=== PATIENT | male | born 1975 | race Caucasian/White ===

== ENCOUNTER → 2020-11-09 | Outpatient (CLI) | payer OTHER, MEDICAID ==
[2020-11-09 13:44] LABS: HEMOGLOBIN 14.2 g/dl (13.5-17.5); MEAN CORPUSCULAR HEMOGLOBIN 31.8 pg (27.0-33.0); MEAN CORPUSCULAR VOLUME 96.2 fl (80.0-96.0); PLATELET COUNT, AUTOMATED 304 10^3/uL (150-450); RED BLOOD COUNT 4.47 10^6/uL (4.30-6.10); WHITE BLOOD COUNT 8.7 10^3/uL (4.0-10.0)
[2020-11-09 14:03] LABS: ALBUMIN 3.6 GM/DL (3.2-5.2); ALT/SGPT 26 U/L (12-78); BILIRUBIN,TOTAL 0.3 MG/DL (0.2-1.0); BLOOD UREA NITROGEN 19 MG/DL (7-18); CALCIUM LEVEL 8.9 MG/DL (8.5-10.1); CARBON DIOXIDE LEVEL 30 MEQ/L (21-32); CHLORIDE LEVEL 101 MEQ/L (98-107); CREATININE FOR GFR 0.97 MG/DL (0.70-1.30); GLOMERULAR FILTRATION RATE > 60.0 (>60); GLUCOSE, FASTING 94 MG/DL (70-100); SODIUM LEVEL 136 MEQ/L (136-145); TOTAL PROTEIN 7.4 GM/DL (6.4-8.2)
[2020-11-09 14:23] LABS: HEPATITIS B SURFACE ANTIGEN NEGATIVE (NEGATIVE)
[2020-11-09 14:51] LABS: HEPATITIS C VIRUS ABY INDEX < 0.0 INDEX (<0.8); HIV 1&2 SCREEN CENTAUR NEGATIVE (NEGATIVE)
--- NOTE | 2020-11-09 21:57 | ECGEPIP ---
[facility] Test Date: 2020-11-09 Pat Name: SCOTT ALVA Department: Room: - Gender: Male Grind Operator: ANABELA : 1975 Requested By: Joseph Giles Order Number: [id number] Reading MD: Soham Demarco Measurements Intervals [place] Rate: 78 P: 79 MA: 136 QRS: 82 QRSD: 78 T: 84 QT: 390 QTc: 444 Interpretive Statements Normal sinus rhythm Normal Electronically Signed on 11-09-2020 21:56:48 EDT by Soham Demarco
== END ==
LOC: M LAB 12:45
PROVIDERS: ATTEND Family Medicine
DX: F11.20 Opioid dependence, uncomplicated (principal)

== ENCOUNTER 2021-05-28 10:12 | Emergency (ER) | payer MEDICAID, OTHER ==
--- OUTSIDE RECORDS SUMMARY | 2021-05-28 10:16 | CCD ---
Author Author [facility] Organization [facility] Address Unknown Phone Unavailable Support Name Relationship Address Phone UN Next Of Kin Unknown Unavailable NONE, PT PER Next Of Kin - -, - - - UE Next Of Kin Unknown Unavailable REID ALVA Next Of Kin [address] [place], [place] [id number] Estevan ALVA Next Of Kin [address] [place] [address] [place] [id number] Re-disclosure Warning The records that you are about to access may contain information from federally-assisted alcohol or drug abuse programs. If such information is present, then the following federally mandated warning applies: This information has been disclosed to you from records protected by federal confidentiality rules (42 CFR part 2). The federal rules prohibit you from making any further disclosure of this information unless further disclosure is expressly permitted by the written consent of the person to whom it pertains or as otherwise permitted by 42 CFR part 2. A general authorization for the release of medical or other information is NOT sufficient for this purpose. The Federal rules restrict any use of the information to criminally investigate or prosecute any alcohol or drug abuse patient.The records that you are about to access may contain highly sensitive health information, the redisclosure of which is protected by Article 27-F of the [facility] Public Health law. If you continue you may have access to information: Regarding HIV / AIDS; Provided by facilities licensed or operated by the [facility] Office of Mental Health; or Provided by the [facility] Office for People With Developmental Disabilities. If such information is present, then the following [facility] mandated warning applies: This information has been disclosed to you from confidential records which are protected by state law. State law prohibits you from making any further disclosure of this information without the specific written consent of the person to whom it pertains, or as otherwise permitted by law. Any unauthorized further disclosure in violation of state law may result in a fine or snf sentence or both. A general authorization for the release of medical or other information is NOT sufficient authorization for further disc losure. Medications No Information Insurance Providers Payer name Policy type / Coverage type Policy ID Covered libertarian ID Covered libertarian's relationship to burton Policy Burton Plan Information [facility] MEDICAID [id number] SP [id number] G [facility] COMMUNITY PLAN [facility] [id number] SP [id number] [facility] [id number] SP [id number] [place] [id number] SP [id number] [facility] [id number] SP [id number] [facility] [id number] SP [id number] O UNAVAILABLE UNAVAILA BLE SELF PAY UNAVAILABLE SP UNAVAILA BLE Problems, Conditions, and Diagnoses No Information Surgeries/Procedures No Information Results No Information Social History No Information
[2021-05-28 10:52] LABS: BASO # 0.1 10^3/uL (0.0-0.2); BASO % 0.5 % (0.0-1.0); EOS # 0.1 10^3/uL (0.0-0.5); EOS % 0.9 % (0.0-3.0); HEMATOCRIT 37.1 % (42.0-52.0); HEMOGLOBIN 12.2 g/dl (13.5-17.5); LYMPH # 2.4 10^3/uL (1.5-5.0); LYMPH % 19.2 % (24.0-44.0); MEAN CORPUSCULAR HEMOGLOBIN 31.7 pg (27.0-33.0); MEAN CORPUSCULAR HGB CONC 32.9 g/dl (32.0-36.5); MEAN CORPUSCULAR VOLUME 96.4 fl (80.0-96.0); MONO # 0.6 10^3/uL (0.0-0.8); MONO % 4.6 % (2.0-8.0); NEUTROPHILS # 9.4 10^3/uL (1.5-8.5); NEUTROPHILS % 74.6 % (36.0-66.0); PLATELET COUNT, AUTOMATED 294 10^3/uL (150-450); RED BLOOD COUNT 3.85 10^6/uL (4.30-6.10); WHITE BLOOD COUNT 12.6 10^3/uL (4.0-10.0)
--- OUTSIDE RECORDS SUMMARY | 2021-05-28 11:19 | CCD ---
Author Author [facility] Organization [facility] Address Unknown Phone Unavailable Support Name Relationship Address Phone UN Next Of Kin Unknown Unavailable NONE, PT PER Next Of Kin - -, - - - UE Next Of Kin Unknown Unavailable REID ALVA Next Of Kin [address] [place], [place] [id number] Estevan ALVA Next Of Kin [address] [place] [address] [place] [address] Re-disclosure Warning The records that you are [...] is protected by Article 27-F of the [facility] Public Health law. If you continue you may have access to information: Regarding HIV / AIDS; Provided by facilities licensed or operated by the [facility] Office of Mental Health; or Provided by the [facility] Office for People With Developmental Disabilities. If such information is present, then the following [facility] mandated warning applies: This information has [...] law may result in a fine or mcc sentence or both. A general authorization for the release of medical or other information is NOT sufficient authorization for further disc losure. Medications No Information Insurance Providers Payer name Policy type / Coverage type Policy ID Covered green party ID Covered green party's relationship to burton Policy Burton Plan Information [facility] COMM[facility] [id number] SP [id number] [facility] MED[facility] [id number] SP [id number] G [facility] [id number] SP [id number] [facility] [id number] SP [id number] [facility] [id number] SP [id number] [facility] [id number] SP [id number] O UNAVAILABLE UNAVAILA BLE SELF PAY UNAVAILABLE SP UNAVAILA BLE Problems, Conditions, and Diagnoses No Information Surgeries/Procedures No Information Results No Information Social History No Information
[2021-05-28 11:26] LABS: ACETAMINOPHEN LEVEL < 2.0 UG/ML (10.0-30.0); ALBUMIN 3.3 GM/DL (3.2-5.2); ALT/SGPT 26 U/L (12-78); BILIRUBIN,DIRECT 0.1 MG/DL (0.0-0.2); BILIRUBIN,TOTAL 0.4 MG/DL (0.2-1.0); BLOOD UREA NITROGEN 17 MG/DL (7-18); CALCIUM LEVEL 8.7 MG/DL (8.5-10.1); CARBON DIOXIDE LEVEL 29 MEQ/L (21-32); CHLORIDE LEVEL 107 MEQ/L (98-107); CPK CREATINE PHOSPHOKINASE 203 U/L (39-308); CREATININE FOR GFR 0.97 MG/DL (0.70-1.30); ETHYL ALCOHOL (ETHANOL) < 0.003 % (0.000-0.010); GLOMERULAR FILTRATION RATE > 60.0 (>60); GLUCOSE, FASTING 98 MG/DL (70-100); POTASSIUM SERUM 4.4 MEQ/L (3.5-5.1); SALICYLATE LEVEL 3.8 MG/DL (5.0-30.0); SODIUM LEVEL 142 MEQ/L (136-145); TOTAL PROTEIN 7.2 GM/DL (6.4-8.2)
--- NOTE | 2021-05-28 11:42 | REP ---
INDICATION: Drug Overdose. COMPARISON: None. TECHNIQUE: 5 mm contiguous transaxial sections were obtained from the skull base to the cerebral convexities. FINDINGS: The ventricles and sulci are consistent with the patient's age. There are no extra-axial fluid collections. There is no mass effect. The deep cerebral white matter is consistent with the patient's age. The orbital and petrous structures, cerebellopontine angles, and posterior fossa are unremarkable. The sella turcica, cavernous, and paracavernous structures are essentially unremarkable. The visualized portions of the paranasal sinuses and mastoid air cells are clear. Images of the skull base show no gross abnormality. IMPRESSION: Essentially unremarkable CT examination of the brain. <Electronically signed by Antelmo Reyna > 05/28/21 1623
[2021-05-28 13:49] LABS: AMPHETAMINES LEVEL URINE POSITIVE (NEGATIVE); BARBITURATES URINE NEGATIVE (NEGATIVE); BENZODIAZEPINES URINE POSITIVE (NEGATIVE); CANNABINOIDS URINE NEGATIVE (NEGATIVE); COCAINE METABOLITE URINE NEGATIVE (NEGATIVE); METHADONE URINE POSITIVE (NEGATIVE); OPIATES URINE POSITIVE (NEGATIVE); PHENCYCLIDINE URINE NEGATIVE (NEGATIVE)
[2021-05-28 14:31] LABS: MB/CK RELATIVE INDEX 1.48 (< OR =4); TROPONIN I < 0.02 NG/ML (< 0.10)
[2021-05-28] MEDS ORDERED: diphenhydrAMINE 50MG/ML VIAL (J1200) IM ONE (16:15)
[2021-05-28] MEDS ORDERED: OLANZapine INTRAMUSCULAR 10MG VIAL IM ONE (16:15)
[2021-05-28 16:30] LABS: RSV AMPLIFICATION NEGATIVE (NEGATIVE)
[2021-05-28] MEDS ORDERED: METH10CO PO (17:29)
--- NOTE | 2021-05-28 18:21 | ECGEPIP ---
[facility] - ED Test Date: 2021-05-28 Pat Name: SCOTT ALVA Department: Room: - Gender: Male Group President: MYRON Winters : 1975 Requested By: Izabel Walker Order Number: [id number] Reading MD: Izabel Walker Measurements Intervals [place] Rate: 80 P: [place]: 64 QRS: 73 QRSD: 80 T: 86 QT: 408 QTc: 470 Interpretive Statements Sinus rhythm with short NC ST elevation, consider inferolateral injury or acute infarct, clinical correlation prolonged qtc Electronically Signed on 05-28-2021 18:21:16 EDT by Izabel Walker
[2021-05-28 22:46] VITALS: BP 106/91
== END 2021-05-28 22:49 | disposition home or self-care (01) ==
LOC: M ED 10:12
DX: F15.10 Other stimulant abuse, uncomplicated (principal); I10 Essential (primary) hypertension; J45.909 Unspecified asthma, uncomplicated; Z88.5 Allergy status to narcotic agent
CPT/HCPCS: 36415; 70450; 80048; 80076; 80143; 80307; 82077; 82550; 82553; 84443; 85025; 87631; 93005; 93041; 94760; 96372; 99285; J1200

== ENCOUNTER 2022-03-06 08:31 | Emergency (ER) | payer OTHER, SELFPAY ==
[~2022-03-06 08:31] MED LIST: METH10CO PO
== END 2022-03-06 09:16 | disposition home or self-care (01) ==
LOC: M ED 08:31
DX: Z04.89 Encounter for examination and observation for other specified reasons (principal); Z88.5 Allergy status to narcotic agent; Z79.891 Long term (current) use of opiate analgesic; F17.200 Nicotine dependence, unspecified, uncomplicated

== ENCOUNTER → 2022-09-12 | Outpatient (REF) | payer SELFPAY | LOC: M LAB REF 16:25 | PROVIDERS: ATTEND Surgery | DX: Z51.81 Encounter for therapeutic drug level monitoring (principal) ==

== ENCOUNTER 2024-06-26 21:23 | Emergency (ER) | payer MEDICARE, MEDICAID ==
[~2024-06-26] VITALS: Ht 188 cm; Wt 70.0 kg
[2024-06-26 21:30] VITALS: BP 132/86; TEMP 97.4; O2SAT 98
== END 2024-06-26 22:43 | disposition left against medical advice (07) ==
LOC: M ED 21:23
DX: Z53.21 Procedure and treatment not carried out due to patient leaving prior to being seen by health care provider (principal)

== ENCOUNTER 2025-06-07 16:48 | Emergency (ER) | payer MEDICAID, MEDICARE, SELFPAY ==
[~2025-06-07] VITALS: Ht 188 cm; Wt 77.3 kg
[2025-06-07 16:55] VITALS: TEMP 99.1
[2025-06-07] MEDS ORDERED: OLAN1TAB20 PO (17:17)
[2025-06-07 17:23] LABS: BASO # 0.1 10^3/uL (0.0-0.2); BASO % 0.6 % (0.0-1.0); EOS # 0.1 10^3/uL (0.0-0.5); EOS % 1.5 % (0.0-3.0); LYMPH # 2.7 10^3/uL (1.5-5.0); LYMPH % 33.6 % (24.0-44.0); MONO # 0.5 10^3/uL (0.0-0.8); MONO % 6.5 % (2.0-8.0); NEUTROPHILS # 4.7 10^3/uL (1.5-8.5); NEUTROPHILS % 57.6 % (36.0-66.0); PLATELET COUNT, AUTOMATED 185 10^3/uL (150-450)
[2025-06-07] MEDS: KETOROLAC 30 MG/ML 1 ML VIAL IV ONE ×2 (17:30→18:51)
[2025-06-07 17:48] LABS: D-DIMER QUANT < 0.27 ug/mL (<0.5); INR 1.16
[2025-06-07 17:50] LABS: ALT/SGPT 27 U/L (7.0-40); AST/SGOT 36 U/L (<34); CALCIUM LEVEL 6.0 MG/DL (8.5-10.1); CARBON DIOXIDE LEVEL 18 MMOL/L (20-31); CHLORIDE LEVEL 114 MMOL/L (98-107); CK-MB VALUE MASS < 1.0 NG/ML (<3.6); CPK CREATINE PHOSPHOKINASE 82 U/L (46-171); CREATININE FOR GFR 0.63 MG/DL (0.70-1.30); FREE T4 1.05 NG/DL (0.89-1.76); GLOMERULAR FILTRATION RATE > 90.0 (>60); POTASSIUM SERUM 3.3 MMOL/L (3.5-5.1); SODIUM LEVEL 144 MMOL/L (136-145)
[2025-06-07 18:51] LABS: CK-MB VALUE MASS 1.0 NG/ML (<3.6)
[2025-06-07 18:52] LABS: CPK CREATINE PHOSPHOKINASE 77.0 U/L (46-171); MB/CK RELATIVE INDEX 1.29 (< OR =4)
[2025-06-07] MEDS: POTASSIUM CHLORIDE 10MEQ SR TABLET PO ONE (19:07)
[2025-06-07 19:15] VITALS: BP 145/101; O2SAT 95
== END 2025-06-07 19:25 | disposition home or self-care (01) ==
LOC: M ED 16:48
DX: R07.1 Chest pain on breathing (principal); I10 Essential (primary) hypertension; F19.10 Other psychoactive substance abuse, uncomplicated
CPT/HCPCS: 71045; 80047; 80048; 80076; 82330; 82550; 82553; 83690; 84439; 84443; 84484; 85025; 85379; 85610; 85730; 93005; 93041; 94760; 96374; 96375; 99285; J1885